=== PATIENT | female | born 1950 | race Caucasian/White ===

== ENCOUNTER 2020-11-01 13:48 | Emergency (ER) | payer SELFPAY ==
[~2020-11-01] VITALS: Ht 157.5 cm; Wt 60.8 kg
[2020-11-01] MEDS ORDERED: LIPITOR20 MG (14:16)
[2020-11-01] MEDS ORDERED: NORVASC5 MG (14:16)
[2020-11-01] MEDS ORDERED: CARDURA2 MG (14:17)
[2020-11-01] MEDS ORDERED: BUMETANIDE0.5 MG (14:17)
[2020-11-01] MEDS ORDERED: COZAAR25 MG (14:17)
[2020-11-01] MEDS ORDERED: GABAPENTIN100 MG (14:17)
[2020-11-01] MEDS ORDERED: COREG6.25 MG (14:17)
[2020-11-01] MEDS ORDERED: HUMALOG 30100 UNITS/ (14:18)
[2020-11-01 15:24] LABS: BASOPHILS 0.8 % (0-2); EOSINOPHILS 0.8 % (0-7); HEMATOCRIT 32.3 % (36.0-48.0); HEMOGLOBIN 10.2 g/dL (12-16); LYMPHOCYTES 20.3 % (15-50); MCHC 31.5 g/dL (31.0-37.0); MCV 82.8 fL (80.0-100.0); MEAN PLATELET VOLUME 6.7 fL (7.4-10.4); MONOCYTES 10.4 % (2-11); NEUTROPHILS 67.7 % (40-80); RBC 3.91 10x6/uL (4.00-5.40); RDW 15.2 % (11.5-14.5); WBC 6.7 10x3/uL (4.8-10.8)
[2020-11-01 15:30] LABS: PLATELET COUNT 524 10x3/uL (130-400)
[2020-11-01 15:35] LABS: ANION GAP 13.2 mmol/L (8-16); CALCIUM 8.6 mg/dL (8.5-10.1); CARBON DIOXIDE 26.7 mmol/L (21.0-32.0); CREATININE - SERUM 1.4 mg/dL (0.6-1.3); POTASSIUM - SERUM 3.9 mmol/L (3.5-5.1)
[2020-11-01 15:46] LABS: ALBUMIN 2.2 g/dL (3.4-5.0); BILIRUBIN - TOTAL 0.5 mg/dL (0.2-1.3); PROTEIN - SERUM 6.8 g/dL (6.4-8.2)
[2020-11-01 15:53] LABS: C-REACTIVE PROTEIN 22.6 mg/dL (0.0-0.9)
[2020-11-01 16:34] LABS: ERYTHROCYTE SEDIMENTATION RATE 98 mm/hr (0-30)
[2020-11-01 19:33] VITALS: Ht 157.5 cm; Wt 60.8 kg
[2020-11-01 22:48] VITALS: BP 159/81
== END 2020-11-01 22:48 | disposition short-term general hospital (02) ==
LOC: D.ER 13:48
PROVIDERS: Emergency Medicine
DX: T81.49XA Infection following a procedure, other surgical site, initial encounter (principal); E11.9 Type 2 diabetes mellitus without complications; I10 Essential (primary) hypertension; Z79.4 Long term (current) use of insulin